=== PATIENT | female | born 1995 | race Caucasian/White ===

== ENCOUNTER 2017-07-16 17:35 | Emergency (ER) | payer OTHER ==
[~2017-07-16] VITALS: Ht 157.5 cm; Wt 94.4 kg
[2017-07-16 18:36] LABS: HEMOGLOBIN 12.3 G/DL (11.9-15.5); MCH 31.5 PG (29.0-34.0); MCHC 34.2 G/DL (30.0-36.0); MCV 92.1 FL (83-99); PLATELET COUNT 277 K/uL (156-360); RBC DIS.WIDTH-CV 11.9 % (11.8-14.6); RBC DIS.WIDTH-SD 39.7 % (39-53); RED BLOOD COUNT 3.91 M/uL (3.80-5.20); WHITE BLOOD COUNT 19.2 K/uL (4.1-10.2)
[2017-07-16 18:45] LABS: ALBUMIN 4.1 g/dL (3.2-4.8); CHLORIDE 104 mEq/L (99-109); POTASSIUM 4.5 mEq/L (3.7-5.4); SODIUM 137 mEq/L (136-147)
[2017-07-16 18:47] LABS: GLUCOSE 162 mg/dL (70-99)
[2017-07-16 18:48] LABS: TOTAL PROTEIN 6.8 g/dL (6.4-8.3)
[2017-07-16 18:49] LABS: TOTAL BILIRUBIN 0.4 mg/dL (0.0-1.0)
[2017-07-16 18:51] LABS: ALKALINE PHOSPHATASE 68 IU/L (3-129); CREATININE 0.8 mg/dL (0.6-1.3); GFR ESTIMATE (CALCULATED) > 59 mL/min/
[2017-07-16 18:52] LABS: UREA NITROGEN (BUN) 8 mg/dL (9-23)
[2017-07-16 18:53] LABS: AST (GOT) 15 IU/L (2-34)
[2017-07-16 18:54] LABS: ALT (GPT) 15 IU/L (3-49)
[2017-07-16 18:59] LABS: QUANTITATIVE HCG 41.7 MIU/ML
[2017-07-16 22:52] LABS: HEMATOCRIT 35.5 % (36.0-46.0); HEMOGLOBIN 12.2 G/DL (11.9-15.5); MCH 31.5 PG (29.0-34.0); MCHC 34.4 G/DL (30.0-36.0); MCV 91.7 FL (83-99); PLATELET COUNT 268 K/uL (156-360); RBC DIS.WIDTH-CV 11.9 % (11.8-14.6); RBC DIS.WIDTH-SD 39.5 % (39-53); RED BLOOD COUNT 3.87 M/uL (3.80-5.20); WHITE BLOOD COUNT 19.9 K/uL (4.1-10.2)
[2017-07-16] MEDS ORDERED: PRENATAL TABLE1 EAC3 PO (23:18)
[2017-07-16] MEDS ORDERED: PERCOCET 5/31 TABLET PO (23:20)
[2017-07-16 23:54] VITALS: BP 91/64
== END 2017-07-16 23:56 | disposition home or self-care (01) ==
LOC: EME 17:35
PROVIDERS: Emergency Medicine Emergency Medical Services
DX: N83.8 Other noninflammatory disorders of ovary, fallopian tube and broad ligament (principal); R10.11 Right upper quadrant pain; D62 Acute posthemorrhagic anemia; Z98.890 Other specified postprocedural states; I10 Essential (primary) hypertension
CPT/HCPCS: 76856; 80053; 84702; 85027; 86850; 86900; 86901; 99281; 99285; J2060; J3010